=== PATIENT | female | born 1950 | race Caucasian/White ===

== ENCOUNTER 2023-12-19 12:19 | Outpatient (REF) | payer OTHER, SELFPAY | END 2023-12-19 12:20 | disposition home or self-care (01) | LOC: HO.SH 12:19 | PROVIDERS: Visit Provider Family Medicine | DX: Z01.118 Encounter for examination of ears and hearing with other abnormal findings (principal); H90.3 Sensorineural hearing loss, bilateral | CPT/HCPCS: 92557; 92567 ==